=== PATIENT | male | born 1980 | race Caucasian/White ===

== ENCOUNTER 2021-05-13 19:32 | Emergency (ER) | payer MEDICAID ==
[2021-05-13] MEDS ORDERED: Sodium Chloride 0.9% 1,000 ML IV ONE (20:14)
[2021-05-13] MEDS ORDERED: Sodium Chloride 0.9% 2.5 ML Syringe FLUSH PRN (20:14)
[2021-05-13] MEDS ORDERED: Sodium Chloride 0.9% 10 ML Syringe FLUSH PRN (20:14)
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
--- NOTE | 2021-05-13 20:41 | PCM.EKG ---
#1 Interpretation EKG Date: 05/13/21 Time: 20:41 EKG Interpretation Comments: Normal sinus rhythm rate of 89 normal axis and intervals no acute ischemia slight ST elevations consistent with benign early repole no acute ischemia
[2021-05-13 20:57] VITALS: PULSE 92
--- NOTE | 2021-05-13 20:59 | CT ---
INDICATION: New onset dizziness TECHNIQUE: CT head without contrast. COMPARISON: None FINDINGS: CSF spaces: Within normal limits for age. Brain parenchyma: The phillip-white differentiation is normal. No sign of mass, hemorrhage, or midline shift. Skull base and calvarium: The visualized paranasal sinuses and mastoid air cells demonstrate no acute or significant findings. The visualized orbits are grossly unremarkable. No skull fractures. IMPRESSION: Unremarkable noncontrast head CT. Please note that all CT scans at this facility use dose modulation, iterative reconstruction, and/or weight-based dosing when appropriate to reduce radiation dose to as low as reasonably achievable. Dictated by Madeleine Mendes MD @ 05/13/2021 8:58:51 PM (Electronically Signed)
[2021-05-13 21:18] LABS: BLOOD UREA NITROGEN,BUN 18 mg/dL (7.0-18.0); CARBON DIOXIDE,CO2 33.1 mmol/L (21.0-32.0); CHLORIDE,CL 100 mmol/L (98-107); GLUCOSE RANDOM 93 mg/dL (74-106); POTASSIUM,K 4.2 mmol/L (3.5-5.1); SODIUM,NA 140 mmol/L (136-148)
[2021-05-13 22:03] VITALS: BP 133/86
== END 2021-05-13 22:04 | disposition home or self-care (01) ==
LOC: MW.ED 19:32
DX: R42 Dizziness and giddiness (principal)
CPT/HCPCS: 36415; 70450; 80053; 81001; 83735; 85025; 93005; 99284; J7030

== ENCOUNTER 2022-05-01 15:15 | Emergency (ER) | payer MEDICAID | END 2022-05-01 18:17 | LOC: MW.ED 15:15 | DX: Z13.9 Encounter for screening, unspecified (principal); F17.200 Nicotine dependence, unspecified, uncomplicated | CPT/HCPCS: 71045; 71045-26; 99283 ==